=== PATIENT | female | born 2000 | race Caucasian/White ===

== ENCOUNTER 2021-05-05 10:07 | Emergency (ER) | payer OTHER ==
[~2021-05-05] VITALS: Ht 157.5 cm; Wt 54.0 kg
[2021-05-05 10:31] VITALS: BP 111/56
[2021-05-05 11:24] LABS: CLARITY URINE CLOUDY (CLEAR); COLOR URINE DARK YELLOW (YELLOW); KETONES URINE 1+ (NEGATIVE); LEUKOCYTE ESTERASE URINE 2+ (NEGATIVE); NITRITE URINE NEGATIVE (NEGATIVE); OCCULT BLOOD URINE 3+ (NEGATIVE); PH URINE 6.5 (4.5-8.0); PROTEIN URINE 1+ (NEGATIVE)
[2021-05-05 12:51] LABS: BASOPHILS % 0.4 % (0.0-2.0); EOSINOPHILS % 0.2 % (0.0-5.0); HEMATOCRIT. 42.4 % (36.0-48.0); HEMOGLOBIN. 14.3 g/dL (12.0-16.0); LYMPHOCYTES % 16.7 % (20.0-50.0); MEAN CORPUSCULAR HEMOGLOBIN 32.5 pg (28.0-32.0); MEAN CORPUSCULAR VOLUME 96.4 fL (81.0-99.0); MEAN PLATELET VOLUME 7.7 fl (7.4-10.4); MONOCYTES % 5.7 % (2.0-8.0); PLATELET 254 x1000/uL (130-400); RED BLOOD CELL COUNT 4.41 mill/uL (4.2-5.4); RED CELL DISTRIBUTION WIDTH 12.6 % (11.6-14.6)
[2021-05-05 12:58] LABS: CHLORIDE 106 mEq/L (98-107)
[2021-05-05 13:07] LABS: HCG SCREEN NEGATIVE
[2021-05-05] MEDS ORDERED: IBUP-2028 MT (15:31)
[2021-05-05] MEDS ORDERED: NITR-87 MT (15:31)
== END 2021-05-05 17:58 | disposition home or self-care (01) ==
LOC: ER 10:07
DX: N83.201 Unspecified ovarian cyst, right side (principal)
CPT/HCPCS: 36415; 76641; 76830; 76856; 80053; 81003; 81025; 84703; 85025; 99284

== ENCOUNTER 2021-06-11 15:17 | Emergency (ER) | payer MEDICAID, OTHER ==
[~2021-06-11] VITALS: Ht 157.5 cm; Wt 66.0 kg
[~2021-06-11 15:17] MED LIST: IBUP-2028 MT; NITR-87 MT
[2021-06-11 16:15] VITALS: BP 106/71
[2021-06-11 16:17] LABS: BASOPHILS % 0.6 % (0.0-2.0); CHLORIDE 105 mEq/L (98-107); EOSINOPHILS % 0.2 % (0.0-5.0); HEMATOCRIT. 39.1 % (36.0-48.0); HEMOGLOBIN. 13.6 g/dL (12.0-16.0); LYMPHOCYTES % 18.1 % (20.0-50.0); MEAN CORPUSCULAR HEMOGLOBIN 32.5 pg (28.0-32.0); MEAN CORPUSCULAR VOLUME 93.8 fL (81.0-99.0); MEAN PLATELET VOLUME 7.9 fl (7.4-10.4); MONOCYTES % 6.5 % (2.0-8.0); NEUTROPHILS % 74.6 % (40.0-76.0); PLATELET 218 x1000/uL (130-400); RED BLOOD CELL COUNT 4.17 mill/uL (4.2-5.4); RED CELL DISTRIBUTION WIDTH 12.8 % (11.6-14.6)
[2021-06-11 16:24] LABS: HCG SCREEN NEGATIVE
[2021-06-11 17:28] LABS: CLARITY URINE CLEAR (CLEAR); COLOR URINE YELLOW (YELLOW); KETONES URINE NEGATIVE (NEGATIVE); LEUKOCYTE ESTERASE URINE NEGATIVE (NEGATIVE); NITRITE URINE NEGATIVE (NEGATIVE); OCCULT BLOOD URINE NEGATIVE (NEGATIVE); PROTEIN URINE NEGATIVE (NEGATIVE); SPECIFIC GRAVITY URINE 1.009 (1.005-1.030); UROBILINOGEN URINE 0.2 E.U./dL (0.2-1.0)
== END 2021-06-11 19:26 | disposition home or self-care (01) ==
LOC: ER 15:17
DX: N83.202 Unspecified ovarian cyst, left side (principal); R10.9 Unspecified abdominal pain; Z87.440 Personal history of urinary (tract) infections
CPT/HCPCS: 36415; 76830; 76856; 80053; 81003; 84703; 85025; 99284